=== PATIENT | male | born 1965 | race Caucasian/White ===

== ENCOUNTER 2022-04-19 20:16 | Emergency (ER) | payer MEDICAID ==
[~2022-04-19] VITALS: Ht 175.3 cm; Wt 108.9 kg
[2022-04-19 20:50] VITALS: BP_SYST 142
--- NOTE | 2022-04-19 20:53 | NUR ---
Patient to ER tent to [facility] for evaluation. Report given to DEQUAN Mccarthy
--- NOTE | 2022-04-19 23:10 | NUR ---
patient left without being seen. Patient reports no longer want to wait. MD notified. Patient left without being seen.
[2022-04-20 00:04] VITALS: BP_SYST 135
== END 2022-04-19 23:10 | disposition left against medical advice (07) ==
LOC: SED 20:16
DX: R05.9 Cough, unspecified (principal); R07.89 Other chest pain; E78.5 Hyperlipidemia, unspecified; E11.9 Type 2 diabetes mellitus without complications; I10 Essential (primary) hypertension; Z53.21 Procedure and treatment not carried out due to patient leaving prior to being seen by health care provider; Z20.822 Contact with and (suspected) exposure to COVID-19
CPT/HCPCS: 36415; 71045; 93005

== ENCOUNTER 2022-04-20 21:44 | Emergency (ER) | payer MEDICAID ==
[~2022-04-20] VITALS: Ht 175.3 cm; Wt 108.9 kg
[2022-04-20 21:50] VITALS: BP_SYST 136
--- NOTE | 2022-04-20 22:01 | NUR ---
EKG GIVEN TO
--- NOTE | 2022-04-21 00:05 | NUR ---
ER at bedside examining patient.
--- NOTE | 2022-04-21 00:28 | NUR ---
PT PRESENTED TO THE ER DRIVEN BY SELF WITH COMPLAINTS OF HEADACHE, NAUSEA AND COUGH FOR THE PAST 2 DAYS AND HYPERTHERMIA., PT DENIES CHEST PAIN, IS AOX4, PT VS ARE WITHIN NORMAL LIMITS, HE IS FEBRILE. PT IN BED WITH BED LOWERED, LOCKED AND RAILS UP
[2022-04-21] MEDS ORDERED: ACETAMINOPHEN 500 MG TABLET PO ONE (00:30)
[2022-04-21] MEDS ORDERED: PROMETHAZINE HCL/CODEINE 6.25-10 mg/5 mL UDC PO ONE (00:30)
[2022-04-21] MEDS ORDERED: guaiFENesin 200 MG/CODEINE 20 MG/ 10 ML UDC PO ONE (00:45)
[2022-04-21] MEDS ORDERED: guaiFENesin 200 MG/CODEINE 20 MG/ 10 ML UDC ONE (00:47)
[2022-04-21] MEDS ORDERED: GUAI120L56 PO (01:48)
[2022-04-21] MEDS ORDERED: ALBU8.5H8 INH (01:48)
[2022-04-21] MEDS ORDERED: ACYC200C31 PO (01:48)
[2022-04-21] MEDS ORDERED: [UNRECOGNIZED DRUG - CODE] PO (01:48)
[2022-04-21 03:25] VITALS: BP_SYST 109
--- NOTE | 2022-04-21 03:26 | NUR ---
Patient given written and verbal discharge instructions and verbalizes understanding. ER DR ALFRED DAVILA discussed with patient the results and treatment provided. Patient in stable condition. ID arm band removed. IV catheter removed intact and dressing applied, no active bleeding. Rx of ACYCLOVIR, ALBUTERAL SULFATE, NAPROXEN SODIUM given. Patient educated on pain management and to follow up with PMD. Pain Scale . Opportunity for questions provided and answered. Medication side effect fact sheet provided.
== END 2022-04-21 03:22 | disposition home or self-care (01) ==
LOC: SED 21:44
DX: B00.9 Herpesviral infection, unspecified (principal); B34.9 Viral infection, unspecified; R51.9 Headache, unspecified; R11.0 Nausea; R05.9 Cough, unspecified; E11.9 Type 2 diabetes mellitus without complications; I10 Essential (primary) hypertension; Z88.0 Allergy status to penicillin; Z79.899 Other long term (current) drug therapy
CPT/HCPCS: 71045; 93005; 99283

== ENCOUNTER 2022-08-19 10:00 | Emergency (ER) | payer MEDICAID ==
[~2022-08-19] VITALS: Ht 175.3 cm; Wt 108.9 kg
[~2022-08-19 10:00] MED LIST: ACYC200C31 PO; ALBU8.5H8 INH; GUAI120L56 PO; [UNRECOGNIZED DRUG - CODE] PO
[2022-08-19 10:07] VITALS: BP_SYST 131
--- NOTE | 2022-08-19 10:07 | NUR ---
Placed in room 7 . Placed on manager cardiac, blood pressure machine and pulse oximeter. To gown for exam. Side rails up. Report given to DEQUAN GARCIA.
[2022-08-19] MEDS ORDERED: ASPIRIN 81 MG TAB.CHEW PO ONE (10:15)
[2022-08-19] MEDS ORDERED: KETOROLAC TROMETHAMINE 30 MG VIAL IVP ONE (10:15)
--- NOTE | 2022-08-19 10:19 | NUR ---
PATIENT TO ED AT THIS TIME WITH COMPLAINTS OF SQUEEZING RADIATING TO B/L LOWER BACK LEFT SIDE CHEST PAIN. PATIENT STATES THE PAIN WOKE HIM UP THIS MORNING.PATIENT STATES HE IS ALSO CONSTIPATED. IV LINE PLACED, NSR ON THE MONITOR, ALERT AND ORIENTED X3. COMFORT MEASURES IMPLEMENED AND MAINTAINED. LABS DRAWN AND SENT
--- NOTE | 2022-08-19 10:20 | NUR ---
# 18 gauge angiocath placed to LAC. Use of asceptic technique. Opsite placed over site. Blood return noted. Blood for lab drawn from site. Flushed with 10 cc of normal saline. No evidence of infiltration noted. Patient tolerated well.
--- NOTE | 2022-08-19 10:44 | NUR ---
PATIENT WAITING FOR RADIOLOGY STUDIES AT THIS TIME, NSR, SUBSTERNAL CHEST PAIN. WILL CONTINUE TO MONITOR PATIENT.
[2022-08-19 10:46] LABS: BASOPHILS # (AUTO) 0.1 K/uL (0.0-0.2); BASOPHILS % (AUTO) 1.3 % (0.0-2.0); EOSINOPHILS # (AUTO) 0.2 K/uL (0.0-0.4); EOSINOPHILS % (AUTO) 3.3 % (0.0-4.0); HEMATOCRIT 40.7 % (36-54); HEMOGLOBIN 13.8 g/dL (14.0-18.0); LYMPHOCYTES # (AUTO) 2.3 K/uL (1.0-5.5); LYMPHOCYTES % (AUTO) 32.8 % (20.5-51.5); MEAN CORPUSCULAR HEMOGLOBIN 30 pg (27-31); MEAN CORPUSCULAR HGB CONC 34 % (32-36); MEAN CORPUSCULAR VOLUME 90 fL (79.0-98.0); MONOCYTES # (AUTO) 0.4 K/uL (0.0-1.0); MONOCYTES % (AUTO) 5.6 % (1.7-9.3); PLATELET COUNT (AUTO) 246 K/uL (130-430); RED BLOOD CELL COUNT(AUTO) 4.53 MIL/uL (4.2-6.2); RED CELL DISTRIBUTION WIDTH 13.7 % (9.0-15.0)
[2022-08-19 10:58] LABS: ANION GAP 4 (5-15); CHLORIDE 105 mmol/L (98-107); GLUCOSE 128 mg/dL (70-99); UREA NITROGEN, BLOOD 17 mg/dL (8-21)
[2022-08-19 11:04] LABS: GFR AFRICAN AMERICAN 130 mL/min (>90)
[2022-08-19 11:07] LABS: ALANINE AMINOTRANSFERASE 30 U/L (12-78); ALBUMIN 3.2 g/dL (3.4-4.8); ASPARTATE AMINOTRANSFERASE 21 U/L (10-37); LIPASE 71 U/L (73-393); TOTAL BILIRUBIN 0.2 mg/dL (0.0-1.0)
[2022-08-19] MEDS ORDERED: MORPHINE 2 MG/ML INJ. SYRINGE IVP ONE (11:30)
[2022-08-19] MEDS ORDERED: ONDANSETRON HCL 4 MG/2 ML VIAL IVP ONE (11:30)
--- NOTE | 2022-08-19 11:35 | NUR ---
Patient pain persist in mid chest, given morphine and zofran iv at this time.
[2022-08-19] MEDS ORDERED: MAG HYDROX/AL HYDROX/SIMETH 30 ML, DICYCLOMINE HCL 20 MG, LIDOCAINE VISCOUS 2% 15ML (PO... PO ONE ×3 (12:15)
[2022-08-19] MEDS ORDERED: fentaNYL CITRATE/PF 100 MCG/2 ML AMP IVP ONE (12:15)
[2022-08-19] MEDS ORDERED: POLYETHYLENE GLYCOL 3350, 17 GM/ POWD.PACK PO ONE (13:45)
[2022-08-19] MEDS ORDERED: TRAM50TA PO (13:46)
[2022-08-19] MEDS ORDERED: MAGN296S8 PO (13:46)
--- NOTE | 2022-08-19 14:27 | NUR ---
Patient given written and verbal discharge instructions and verbalizes understanding. ER MD discussed with patient the results and treatment provided. Patient in stable condition. ID arm band removed. IV catheter removed intact and dressing applied, no active bleeding. Rx of given. Patient educated on pain management and to follow up with PMD. Pain Scale . Opportunity for questions provided and answered. Medication side effect fact sheet provided.
[2022-08-19 14:28] VITALS: BP_SYST 100
[2022-08-19] MEDS ORDERED: fentaNYL CITRATE/PF 100 MCG/2 ML AMP ONE (14:42)
[2022-08-19] MEDS ORDERED: MAG-AL HYDROX/SIMETH 30 ML UDC ONE (14:43)
[2022-08-19] MEDS ORDERED: DICYCLOMINE HCL 10 MG/5 ML SOLUTION ONE (14:44)
[2022-08-19] MEDS ORDERED: LIDOCAINE VISCOUS 2%, 15 ML UDC ONE (14:46)
[2022-08-19] MEDS ORDERED: LIDOCAINE VISCOUS 2%, 15 ML UDC MM ONE (15:00)
[2022-08-19] MEDS ORDERED: MAG-AL HYDROX/SIMETH 30 ML UDC PO ONE (15:00)
[2022-08-19] MEDS ORDERED: DICYCLOMINE HCL 10 MG/5 ML SOLUTION PO ONE (15:00)
== END 2022-08-19 14:29 | disposition home or self-care (01) ==
LOC: SED 10:00
DX: R10.13 Epigastric pain (principal); R07.9 Chest pain, unspecified; R06.02 Shortness of breath; E11.9 Type 2 diabetes mellitus without complications; I10 Essential (primary) hypertension; Z88.0 Allergy status to penicillin; Z79.899 Other long term (current) drug therapy
CPT/HCPCS: 99291; 74176; 96374; 96375; 76700; 80053; 83880; 83690; 85025; 84484; 36415; 93005; 71045; 76376; J2001; J1885; J2405; J3010; J2270

== ENCOUNTER 2023-06-20 09:50 | Emergency (ER) | payer MEDICAID ==
[~2023-06-20] VITALS: Ht 175.3 cm; Wt 113.4 kg
[2023-06-20 09:50] VITALS: BP_SYST 135; PULSE 64; RESP 20; TEMP 97.8; O2SAT 97
[~2023-06-20 09:50] MED LIST changes: +MAGN296S8 PO; +TRAM50TA PO
[2023-06-20] MEDS ORDERED: LORazepam 1 MG TABLET PO ONE (10:15)
[2023-06-20 10:53] LABS: BASOPHILS # (AUTO) 0.1 K/uL (0.0-0.2); BASOPHILS % (AUTO) 1.1 % (0.0-2.0); EOSINOPHILS # (AUTO) 0.2 K/uL (0.0-0.4); EOSINOPHILS % (AUTO) 2.1 % (0.0-4.0); HEMATOCRIT 40.8 % (36-54); HEMOGLOBIN 13.7 g/dL (14.0-18.0); LYMPHOCYTES # (AUTO) 2.8 K/uL (1.0-5.5); LYMPHOCYTES % (AUTO) 37.2 % (20.5-51.5); MEAN CORPUSCULAR HEMOGLOBIN 30 pg (27-31); MEAN CORPUSCULAR HGB CONC 34 % (32-36); MEAN CORPUSCULAR VOLUME 89 fL (79.0-98.0); MONOCYTES # (AUTO) 0.4 K/uL (0.0-1.0); MONOCYTES % (AUTO) 5.6 % (1.7-9.3); NEUTROPHILS # (AUTO) 4.1 K/uL (1.8-7.7); PLATELET COUNT (AUTO) 249 K/uL (130-430); RED BLOOD CELL COUNT(AUTO) 4.57 MIL/uL (4.2-6.2); RED CELL DISTRIBUTION WIDTH 13.6 % (9.0-15.0); WHITE BLOOD COUNT (AUTO) 7.6 K/uL (4.8-10.8)
[2023-06-20 11:12] LABS: ANION GAP 12 (5-15); CALCIUM 8.4 mg/dL (8.4-11.0); CARBON DIOXIDE 24 mmol/L (23-29); CHLORIDE 103 mmol/L (98-107); CREATININE 0.65 mg/dL (0.55-1.30); GFR AFRICAN AMERICAN 164 mL/min (>90); GLUCOSE 116 mg/dL (74-106); POTASSIUM 3.9 mmol/L (3.5-5.1); SODIUM SERUM 139 mmol/L (136-145); UREA NITROGEN, BLOOD 13 mg/dL (8-21)
[2023-06-20 11:13] LABS: PROTHROMBIN TIME 9.9 SECS (9.5-12.5)
[2023-06-20 11:15] LABS: GFR NON AFRICAN-AMERICAN 136 mL/min (>90)
[2023-06-20 11:17] LABS: ALANINE AMINOTRANSFERASE 35 U/L (12-78); ALBUMIN 3.5 g/dL (3.4-4.8); ASPARTATE AMINOTRANSFERASE 24 U/L (10-37); CREATINE KINASE, TOTAL 168 U/L (39-308); TOTAL BILIRUBIN 0.4 mg/dL (0.0-1.0); TOTAL PROTEIN, SERUM 6.8 g/dL (6.4-8.3)
[2023-06-20] MEDS ORDERED: LORA-259 PO (12:43)
[2023-06-20 13:50] VITALS: BP_SYST 131; PULSE 64; RESP 16; TEMP 97.2; O2SAT 97
== END 2023-06-20 13:51 | disposition home or self-care (01) ==
LOC: SED 09:50
DX: R06.4 Hyperventilation (principal); R20.2 Paresthesia of skin; R42 Dizziness and giddiness; R51.9 Headache, unspecified; E11.9 Type 2 diabetes mellitus without complications; I10 Essential (primary) hypertension; Z88.0 Allergy status to penicillin; Z79.899 Other long term (current) drug therapy
CPT/HCPCS: 36415; 70450-TC; 71045; 76376; 80053; 82550; 83605; 84484; 85025; 85610-TC; 85730-TC; 93005; 99285